=== PATIENT | male | born 1980 | race Caucasian/White ===

== ENCOUNTER → 2021-04-11 11:43 | Outpatient (BNVA) | payer BC, SELFPAY | PROVIDERS: PCP Nurse Practitioner Family; Visit Provider Registered Nurse | DX: Z20.822 Contact with and (suspected) exposure to COVID-19 (principal) | CPT/HCPCS: 87635 ==

== ENCOUNTER → 2021-05-07 08:22 | Outpatient (BNVA) | payer OTHER, SELFPAY | PROVIDERS: PCP Registered Nurse; Visit Provider Registered Nurse | DX: Z20.822 Contact with and (suspected) exposure to COVID-19 (principal) | CPT/HCPCS: 87635 ==

== ENCOUNTER 2021-09-10 12:09 | Inpatient (IN) | payer OTHER, SELFPAY ==
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
[2021-09-10 12:34] VITALS: BP 123/86; PULSE 103; RESP 18; TEMP 36.9; O2SAT 95
[2021-09-10 13:27] LABS: Basophils # 0.1 10^3/uL (0.0-0.1); Basophils % 0.6 %; Eosinophils # 0.1 10^3/uL (0.0-0.8); Eosinophils % 1.6 %; Hematocrit 48.1 % (42.0-52.0); Hemoglobin 15.9 g/dL (11.7-16.6); Lymphocytes # 2.1 10^3/uL (0.8-4.8); Lymphocytes % 26.8 %; Mean Corpuscular HGB Conc 33.1 g/dL (30.0-36.0); Mean Corpuscular Volume 90.8 fl (80-94); Mean Platelet Volume 8.6 fL (7.4-10.4); Monocytes # 0.6 10^3/uL (0.2-0.9); Monocytes % 7.6 %; Neutrophils # 5.05 10^3/uL (1.8-7.7); Neutrophils % 63.1 %; Nucleated Red Blood Cells % 0 %; Platelet Count 238 10^3/cmm (130-400)
[2021-09-10 13:41] VITALS: BP 123/86; PULSE 103; RESP 18; TEMP 36.9; O2SAT 95
[2021-09-10 13:46] LABS: Acetaminophen < 5.0 ug/mL (10-30); Alanine Aminotransferase 14 U/L (0-41); Albumin Level 4.5 g/dL (3.5-5.2); Alcohol Level < 10 mg/dL (0-10); Alkaline Phosphatase 65 IU/L (40-130); Anion Gap 13.1 (5-19); Aspartate Amino Transferase 15 U/L (0-40); Blood Urea Nitrogen 11 mg/dL (6-20); Calcium 9.7 mg/dL (8.5-10.5); Carbon Dioxide 28 mmol/L (22-29); Chloride 101 mmol/L (98-107); Globulin 3.3 g/dL (1.3-4.6); Glomerular Filtration Rate 108.2 mL/min (90-130); Glucose 94 mg/dL (65-115); Osmolality Calculated 285 mOsm/kg (285-295); Potassium 4.1 mmol/L (3.5-5.1); Salicylate < 0.3 mg/dL (3-10); Sodium 138 mmol/L (136-145); Total Bilirubin 0.4 mg/dL (0.15-1.2); Total Protein 7.8 g/dL (6.6-8.7)
[2021-09-10 14:05] LABS: Amphetamines Screen Urine Negative (Negative); Barbiturates Screen Urine Negative (Negative); Benzodiazepines Screen Urine Negative (Negative); Cocaine Screen Urine Negative (Negative); Opiate Screen Urine Negative (Negative); PCP Screen Urine Negative (Negative); THC Screen Urine Negative (Negative)
[2021-09-10 16:17] VITALS: BP 123/86; PULSE 103; RESP 18; TEMP 36.9; O2SAT 95
[2021-09-10 16:46] VITALS: BP 113/80; PULSE 86; RESP 17; TEMP 37.1; O2SAT 98
[2021-09-10] MEDS: acetaminophen 325 mg Tablet 650 MG PO (18:35)
[2021-09-10] MEDS: OLANZapine 5 mg ODT PO (18:36)
[2021-09-10 21:06] VITALS: BP 102/52; PULSE 89; RESP 18; TEMP 36.9; O2SAT 99
[2021-09-11 06:00] VITALS: BP 105/64; PULSE 80; RESP 16; TEMP 36.8; O2SAT 97
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
[2021-09-11] MEDS: divalproex ER 250 mg Tablet (24H) PO (09:56)
[2021-09-11 13:58] VITALS: BP 111/76; PULSE 90; RESP 18; TEMP 36.5; O2SAT 98
[2021-09-11] MEDS: OLANZapine 5 mg ODT PO (17:48)
--- NOTE | 2021-09-11 17:49 | PC.NURSE ---
PRN MED PT GIVEN 5MG ZYPREXA, FOR STATED ANXIETY, WILL CONTINUE TO MONITOR.
[2021-09-11] MEDS: divalproex ER 500 mg Tablet (24H) PO (20:56)
[2021-09-11 21:06] VITALS: BP 103/70; PULSE 75; RESP 16; TEMP 37; O2SAT 97
[2021-09-12 06:00] VITALS: BP 101/62; PULSE 70; RESP 16; TEMP 36.8; O2SAT 96
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
[2021-09-12 09:20] LABS: Valproic Acid Level 29.3 ug/mL (50-100)
[2021-09-12] MEDS: divalproex ER 500 mg Tablet (24H) PO (09:25)
[2021-09-12 14:00] VITALS: BP 115/78; PULSE 81; RESP 18; TEMP 35.6; O2SAT 96
[2021-09-12] MEDS: divalproex ER 500 mg Tablet (24H) 750 MG PO (20:31)
[2021-09-12] MEDS: trazodone 50 mg Tablet PO (20:31)
[2021-09-12 20:39] VITALS: BP 102/67; PULSE 69; RESP 17; TEMP 36.6; O2SAT 99
[2021-09-13 06:00] VITALS: BP 110/65; PULSE 87; RESP 16; TEMP 36.7; O2SAT 97
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
[2021-09-13 07:56] LABS: Valproic Acid Level 67.2 ug/mL (50-100)
[2021-09-13] MEDS: divalproex ER 500 mg Tablet (24H) PO (08:32)
[2021-09-13 08:57] VITALS: BP 110/65; PULSE 87; RESP 16; TEMP 36.7; O2SAT 97
--- NOTE | 2021-09-13 10:26 | PC.NURSE ---
Patient discharged before this nurse was able to chart. Patient was AAOx4, no current thoughts of harming self or others. Excited about getting to leave and go home. No needs at this time and verbally acknowledged discharge plans and follow ups. Patient received all his belongings and signed paperwork.
== END 2021-09-13 10:10 | disposition home or self-care (01) | DRG 885 ==
LOC: ER 13:30 → NP 14:23
PROVIDERS: Admitting Provider Psychiatry & Neurology Psychiatry; Emergency Provider Physician Assistant; PCP Registered Nurse; Visit Provider Psychiatry & Neurology Psychiatry
DX: F31.9 Bipolar disorder, unspecified (principal); R45.851 Suicidal ideations; Z87.820 Personal history of traumatic brain injury; F15.10 Other stimulant abuse, uncomplicated; F43.12 Post-traumatic stress disorder, chronic; F41.1 Generalized anxiety disorder
CPT/HCPCS: 36415; 80053; 80164; 80306; 80307; 85025; 97150; 97165; 99285

== ENCOUNTER → 2021-09-20 09:33 | Outpatient (BNVA) | payer OTHER, SELFPAY | PROVIDERS: PCP Registered Nurse; Visit Provider Registered Nurse | DX: Z79.899 Other long term (current) drug therapy (principal) | CPT/HCPCS: 80164 ==

== ENCOUNTER → 2021-11-21 08:16 | Outpatient (BNVA) | payer OTHER, SELFPAY | PROVIDERS: PCP Registered Nurse; Visit Provider Registered Nurse | DX: F31.9 Bipolar disorder, unspecified (principal) | CPT/HCPCS: 80164 ==

== ENCOUNTER → 2022-01-24 09:12 | Outpatient (BNVA) | payer OTHER, SELFPAY | PROVIDERS: PCP Registered Nurse; Visit Provider Nurse Practitioner | DX: Z79.899 Other long term (current) drug therapy (principal); F15.10 Other stimulant abuse, uncomplicated; F10.21 Alcohol dependence, in remission; F31.9 Bipolar disorder, unspecified | CPT/HCPCS: 80061; 83036 ==

== ENCOUNTER 2022-07-07 11:13 | Outpatient (CLI) | payer OTHER, SELFPAY ==
--- NOTE | 2022-07-07 11:34 | XRR_ITS ---
PROCEDURE INFORMATION: Exam: XR Lumbosacral Spine Exam date and time: 07/07/2022 11:49 AM Age: 41 years old Clinical indication: Prior surgery; Surgery type: Chronic low back pain, constant level 8; Additional info: M54.50 - low back pain, unspecified TECHNIQUE: Imaging protocol: Radiologic exam of the lumbosacral spine. Views: 2 or 3 views. COMPARISON: CT lumbar spine wo con* [id number] 05/16/2016 10:23 PM FINDINGS: Bones/joints: Lumbar curvature and alignment is unremarkable. There is no fracture or spondylolisthesis. Pedicles are intact. Disc heights are maintained. No significant degenerative changes. Soft tissues: Paraspinal soft tissues are unremarkable. XR/XR lumbar spine 2-3V* [id number] IMPRESSION: Normal lumbar spine.
--- NOTE | 2022-07-07 11:34 | XRR_ITS ---
PROCEDURE INFORMATION: Exam: XR Thoracic Spine Exam date and time: 07/07/2022 11:49 AM Age: 41 years old Clinical indication: Pain in thoracic spine; Prior surgery; Surgery type: Hernia; Patient HX: Chronic low back pain, constant level 8; Additional info: M54.6 - pain in thoracic spine TECHNIQUE: Imaging protocol: Radiologic exam of the thoracic spine. Views: 3 views. COMPARISON: CT thoracic spin wo con* [id number] 05/16/2016 10:16 PM FINDINGS: Bones/joints: Curvature and alignment is unremarkable. No fracture or spondylolisthesis. Pedicles are intact. Soft tissues: Paraspinal soft tissues are unremarkable. XR/XR thoracic spine 3V* [id number] IMPRESSION: Normal thoracic spine.
== END 2022-07-07 11:14 | disposition home or self-care (01) ==
PROVIDERS: PCP Registered Nurse; Visit Provider Registered Nurse
DX: M54.50 Low back pain, unspecified (principal); M54.6 Pain in thoracic spine
CPT/HCPCS: 72072; 72100